=== PATIENT | male | born 1945 | race Caucasian/White ===

== ENCOUNTER → 2020-12-11 08:00 | Outpatient (CLI) | payer OTHER ==
[~2020-12-11 08:00] MED LIST: CEFADROXIL500 MG PO; CORTISONE25 MG; PREDNISONE2.5 MG
== END | disposition home or self-care (01) ==
LOC: PPH VACUNA 08:00
PROVIDERS: ATTEND Emergency Medicine Pediatric Emergency Medicine
DX: Z23 Encounter for immunization (principal)